=== PATIENT | female | born 1950 | race Caucasian/White ===

== ENCOUNTER → 2019-06-07 | Outpatient (CLI) | payer MEDICARE ==
--- NOTE | 2019-06-07 08:59 | US ---
EXAMINATION TYPE: US abdomen comp/pelvis limited DATE OF EXAM: 06/07/2019 COMPARISON: NONE CLINICAL HISTORY: R31.9 hematuria. Intermittent left flank pain x couple months, hematuria, history o f cholecystectomy EXAM MEASUREMENTS: Liver Length: 16.5 cm Gallbladder Wall: surgically absent CBD: 0.7 cm Spleen: 9.9 cm Right Kidney: 10.9 x 6.1 x 5.8 cm Left Kidney: 11.1 x 5.8 x 5.0 cm Pancreas: visualized portions wnl, limited by overlying midline bowel gas Liver: mildly heterogeneous, which limits evaluation for hepatic masses although multiple cysts are seen with the largest measuring 2.7 x 3.0 x 2.7cm Gallbladder: surgically absent CBD: visualized portions wnl, limited by overlying bowel gas Spleen: visualized portions wnl, limited by overlying bowel gas Right Kidney: cortical thinning, 0.6cm echogenic focus mid pole, 4.5cm exophytic cyst inferior pole Left Kidney: mild hydronephrosis Upper IVC: wnl Abd Aorta: wnl Bladder: not fully distended, appears wnl as seen Bilateral Jets Seen no IMPRESSION: 1. Mild left-sided hydronephrosis. CT could assess for distal obstructing calculus or mass. 2. Probable punctate nonobstructing right renal calculus versus small angiomyolipoma as no distinct s hadowing is seen. Incidental note is made of right cortical renal thinning. 3. Benign-appearing exophytic right renal cysts and multiple hepatic cysts. 4. Sonographic findings most suggestive of hepatic steatosis. Correlate with liver function tests.
== END | disposition home or self-care (01) ==
LOC: RADUSWWP 07:55
PROVIDERS: ATTEND Family Medicine
DX: N13.30 Unspecified hydronephrosis (principal); N28.1 Cyst of kidney, acquired; K76.89 Other specified diseases of liver
CPT/HCPCS: 76700; 76857

== ENCOUNTER → 2019-06-25 | Outpatient (CLI) | payer MEDICARE ==
--- NOTE | 2019-06-25 13:04 | CT ---
EXAMINATION TYPE: CT abdomen pelvis wo con DATE OF EXAM: 06/25/2019 COMPARISON: Ultrasound 06/07/2019 HISTORY: Right flank pain CT DLP: 899 mGycm Automated exposure control for dose reduction was used. TECHNIQUE: Helical acquisition of images was performed from the lung bases through the pelvis. FINDINGS: LUNG BASES: No significant abnormality is appreciated. LIVER/GB: Multiple hepatic cysts are seen with the largest measuring approximately 3 cm. Gallbladder surgically absent. PANCREAS: No significant abnormality is seen. SPLEEN: No significant abnormality is seen. ADRENALS: No significant abnormality is seen. KIDNEYS: Right kidney: There are multiple simple appearing cysts including multiple parapelvic renal cysts. No hydronephrosis. There are approximately 8 right renal calculi all measuring less than 5 mm. Cortical loss noted. Left kidney: There are approximately 8 calcifications measuring 5 mm or less. Cortical loss noted. URINARY BLADDER: No significant abnormality is seen. ADENOPATHY: None visualized. OSSEOUS STRUCTURES: Degenerative disc disease noted with severe changes of BOWEL: Diverticulosis of the colon. Small hiatal hernia noted. OTHER: Aorta of normal caliber. Calcifications in pelvis. Bilateral fat-containing inguinal hernias n oted. Fat-containing periumbilical hernia. IMPRESSION: 1. Bilateral nonobstructing nephrolithiasis with evidence of cortical loss suggestive of chronic medi ike renal disease. No hydronephrosis.
== END | disposition home or self-care (01) ==
LOC: RADCTMAIN 12:29
PROVIDERS: ATTEND Urology
DX: N20.0 Calculus of kidney (principal); N28.89 Other specified disorders of kidney and ureter
CPT/HCPCS: 74176

== ENCOUNTER → 2020-03-18 | Outpatient (CLI) | payer MEDICARE, OTHER ==
--- NOTE | 2020-03-19 10:08 | MM ---
Reason for exam: screening (asymptomatic). Last mammogram was performed 4 years and 9 months ago. History: Patient is postmenopausal. Physical Findings: A clinical breast exam by your physician is recommended on an annual basis and results should be correlated with mammographic findings. MG 3D Screening Mammo W/Cad Bilateral CC and MLO view(s) were taken. Prior study comparison: June 16, 2015, mammogram. The breast tissue is heterogeneously dense. This may lower the sensitivity of mammography. There is no discrete abnormality. ASSESSMENT: Negative, BI-RAD 1 RECOMMENDATION: Routine screening mammogram of both breasts in 1 year.
== END | disposition home or self-care (01) ==
LOC: RADMAMWWP 08:54
PROVIDERS: ATTEND Family Medicine
DX: Z12.31 Encounter for screening mammogram for malignant neoplasm of breast (principal)
CPT/HCPCS: 77063; 77067

== ENCOUNTER → 2021-01-14 | Outpatient (CLI) | payer MEDICARE ==
[~2021-01-14] MED LIST: DOBUTamine DRIP for NUC MED 500 MG in DEXTROSE/WATER 1 250ML.BAG IV PRN
--- NOTE | 2021-01-14 11:15 | P.STRESS ---
- Stress Test Note Stress Test Results/Findings: Exam Performed: dobutamine stress echo with con Exam Date: 01/14/21 Reason for Exam: Dyspnea Height: 5 ft 7 in Weight: 97.7 kg Protocol: Dobutamine stress echo Stage: IV Duration of Exercise: 13:06 Resting Heart Rate: 73 Resting Blood Pressure: 156/87 Maximum Achieved Heart Rate: 130 Maximum Achieved Blood Pressure: 188/77 85% PMHR: 127 100% PMHR: 149 METS: Technologist Comment: Stress Test Results/Findings: This is a 70-year-old female with history of hypertension, hypercholesterolemia, family history of ischemic heart disease being evaluated for symptoms of shortness of breath. Stress data: Baseline EKG showed sinus rhythm with normal [place] interval and QRS duration. Blood pressure at rest is 156/87 and pulse rate of 73. A standard dose of dobutamine was initiated at 10 mics and was titrated to 40 mics achieving a maximum heart rate of 1:30 with a blood pressure 188/77. EKGs taken during and after dobutamine infusion did not show any changes of ischemia. Patient did not have any symptoms. Echo data Baseline echo images showed normal wall motion and thickening. Exerci se at echo images showed augmentation of wall motion and thickening in all the segments. The study is done with [employer]. Final impression: #1. Negative dobutamine stress test #2. Negative dobutamine stress echo.
--- NOTE | 2021-01-15 10:10 | ECHOS ---
Stress Test Results/Findings: Exam Performed: dobutamine stress echo with con Exam Date: 01/14/21 Reason for Exam: Dyspnea Height: 5 ft 7 in Weight: 97.7 kg Protocol: Dobutamine stress echo Stage: IV Duration of Exercise: 13:06 Resting Heart Rate: 73 Resting Blood Pressure: 156/87 Maximum Achieved Heart Rate: 130 Maximum Achieved Blood Pressure: 188/77 85% PMHR: 127 100% PMHR: 149 METS: Technologist Comment: Stress Test Results/Findings: This is a 70-year-old female with history of hypertension, hypercholesterolemia, family history of ischemic heart disease being evaluated for symptoms of shortness of breath. Stress data: Baseline EKG showed sinus rhythm with normal [place] interval and QRS duration. Blood pressure at rest is 156/87 and pulse rate of 73. A standard dose of dobutamine was initiated at 10 mics and was titrated to 40 mics achieving a maximum heart rate of 1:30 with a blood pressure 188/77. EKGs taken during and after dobutamine infusion did not show any changes of ischemia. Patient did not have any symptoms. Echo data Baseline echo images showed normal wall motion and thickening. Exercise at echo images showed augmentation of wall motion and thickening in all the segments. The study is done with [employer]. Final impression: #1. Negative dobutamine stress test #2. Negative dobutamine stress echo. CLEMENTINA
== END | disposition home or self-care (01) ==
LOC: RADNMMAIN 09:11
PROVIDERS: ATTEND Family Medicine
DX: R06.00 Dyspnea, unspecified (principal)
CPT/HCPCS: C8930; Q9950; 93351

== ENCOUNTER → 2021-07-01 | Outpatient (CLI) | payer MEDICARE ==
--- NOTE | 2021-07-02 12:52 | MM ---
Reason for exam: screening (asymptomatic). Last mammogram was performed 1 year and 3 months ago. History: Patient is postmenopausal. Took hormonal contraceptives for 2 years. Physical Findings: A clinical breast exam by your physician is recommended on an annual basis and results should be correlated with mammographic findings. MG 3D Screening Mammo W/Cad Bilateral CC and MLO view(s) were taken. Prior study comparison: March 18, 2020, bilateral MG 3d screening mammo w/cad. June 16, 2015, mammogram. The breast tissue is heterogeneously dense. This may lower the sensitivity of mammography. There is no discrete abnormality. No significant changes when compared with prior studies. ASSESSMENT: Negative, BI-RAD 1 RECOMMENDATION: Routine screening mammogram of both breasts in 1 year.
== END | disposition home or self-care (01) ==
LOC: RADUSWWP 13:06
PROVIDERS: ATTEND Family Medicine
DX: Z12.31 Encounter for screening mammogram for malignant neoplasm of breast (principal); Z78.0 Asymptomatic menopausal state; Z79.3 Long term (current) use of hormonal contraceptives
CPT/HCPCS: 77063; 77067

== ENCOUNTER → 2021-08-04 | Outpatient (CLI) | payer MEDICARE ==
--- NOTE | 2021-08-11 12:02 | P.ARTDOP ---
Arterial Doppler LOWER EXTREMITY ARTERIAL DOPPLER: DATE OF SERVICE: 08/04/2021 Reason for study: Suspected lower extremity occlusive disease. Doppler waveforms: Multiphasic bilaterally throughout. Toe waveforms blunted bilaterally. Pulse volume recording: []. Pressure gradients: Mild gradient below the knee. Ankle-brachial indices: 0.93 on the right and 0.99 on the left. Toe brachial indices: 0.41 on the right, 0.37 on the left Impression: Mild distal decrease in pressures. Vasospastic phenomenon is a potential. Distal disease less likely. Clinical correlation recommended.
== END | disposition home or self-care (01) ==
LOC: RADUSWWP 13:11
PROVIDERS: ATTEND Family Medicine
DX: I73.9 Peripheral vascular disease, unspecified (principal)
CPT/HCPCS: 93923

== ENCOUNTER 2021-09-25 11:02 | Observation (INO) | payer MEDICARE ==
--- NOTE | 2021-09-25 11:18 | ED ---
Chest Pain HPI - General Stated Complaint: Chest Pain Time Seen by Provider: 09/25/21 11:03 Source: patient - History of Present Illness Initial Comments: This is a well-appearing 71-year-old female, alert and oriented 4, presents to the emergency room with complaints of 3 days of intermittent chest pain that lasts about 2-3 minutes and occurs at rest and feels like a "fullness". She states that she has 2-3 episodes a day. States that the pain sometimes radiates into her back and her left side of her neck. She is also been complaining of fatigue for the past couple of months and shortness of breath and anxiety when she gets in a vehicle. She states that the ride in the ambulance to the hospital was anxiety producing for her as well. Patient states that she has spoken to her doctor about her anxiety and fatigue and has been having tests. Patient states that she thinks that her anxiety meds need to be increased. She denies any chest pain or shortness of breath at this time. She denies any nausea vomiting or diarrhea. Patient has a history of anxiety, hypertension, peripheral vascular disease, mitral valve prolapse, hypothyroidism, and uses a CPAP machine at night. MD Complaint: chest pain -: days(s) (3) Onset: during rest Pain Location: substernal Pain Radiation: back, neck Quality: other (fullness) Consistency: now resolved Improves With: nothing Worsens With: nothing Anginal Symptoms: dyspnea Other Symptoms: other (fatigue) Treatments Prior to Arrival: none - Related Data Home Medications Medication Instructions Recorded Confirmed Ezetimibe [Zetia] 10 mg PO DAILY 01/12/19 09/25/21 Nebivolol HCl [Bystolic] 10 mg PO DAILY 01/12/19 09/25/21 Aspirin EC [Ecotrin Low Dose] 81 mg PO DAILY 09/25/21 09/25/21 Cholecalciferol [Vitamin D3 (125 125 mcg PO DAILY 09/25/21 09/25/21 Mcg = 5000 Iu)] Citalopram Hydrobromide [CeleXA] 20 mg PO DAILY 09/25/21 09/25/21 Levothyroxine Sodium 112 mcg PO DAILY 09/25/21 09/25/21 Mirtazapine [Remeron] 30 mg PO HS 09/25/21 09/25/21 Pramipexole [Mirapex] 1 mg PO HS 09/25/21 09/25/21 Super B Complex 1 tab PO DAILY 09/25/21 09/25/21 Allergies Allergy/AdvReac Type Severity Reaction Status Date / Time No Known Allergies Allergy Verified 09/25/21 15:28 Review of Systems ROS Statement: Those systems with pertinent positive or pertinent negative responses have been documented in the HPI. ROS Other: All systems not noted in ROS Statement are negative. EKG Findings - EKG Results: EKG: sinus rhythm (Ventricular rate 64, [place] interval of 0.188, QRS 0.86, QTC 0.435) Past Medical History Past Medical History: Hypertension, Mitral Valve Prolapse (MVP), Pulmonary Embolus (PE), Thyroid Disorder History of Any Multi-Drug Resistant Organisms: None Reported Past Surgical History: Cholecystectomy, Heart Catheterization, Hysterectomy, Orthopedic Surgery Additional Past Surgical History / Comment(s): knee replacement 2017 Past Psychological History: Depression Past Alcohol Use History: Occasional Past Drug Use History: None Reported General Exam General appearance: alert, in no apparent distress Head exam: Present: atraumatic, normocephalic, normal inspection Eye exam: Present: normal appearance, EOMI ENT exam: Present: normal exam, normal oropharynx, mucous membranes moist Neck exam: Present: normal inspection, full ROM. Absent: tenderness, meningismus, lymphadenopathy, thyromegaly Respiratory exam: Present: normal lung sounds bilaterally. Absent: respiratory distress, wheezes, rales, rhonchi, stridor, chest wall tenderness, accessory muscle use Cardiovascular Exam: Present: regular rate, normal rhythm. Absent: JVD GI/Abdominal exam: Present: soft, normal bowel sounds. Absent: distended, tenderness, guarding, rebound, rigid Extremities exam: Present: normal capillary refill. Absent: pedal edema, calf tenderness Back exam: Present: normal inspection. Absent: tenderness, CVA tenderness (R), CVA tenderness (L), rash noted Neurological exam: Present: alert, oriented X3 Psychiatric exam: Present: normal affect, normal mood Skin exam: Present: warm, dry, intact, normal color. Absent: rash, cyanosis, diaphoretic, pallor Course Vital Signs 09/25/21 09/25/21 11:17 15:05 Temperature 97.7 F 97.8 F Pulse Rate 70 59 L Respiratory 16 18 Rate Blood Pressure 138/90 O2 Sat by Pulse 98 96 Oximetry Chest Pain MDM - Differential Diagnosis GERD, Panic Disorder/Anxiety - MDM 71-year-old female patient presents to the emergency room with complaints of chest pain and shortness of breath over the past 2-3 days. She states the episodes last 2-3 minutes and she has had up to 3 a day. He states that they occur at rest. They're not accompanied with nausea or vomiting. She did have a recent stress test in December of this year and was negative. Chest x-ray shows no acute cardiopulmonary disease process. Bibasilar atelectasis with no pleural effusion or focal consolidation. CBC is unremarkable. Troponin is negative at 0.012 EKG shows normal sinus rhythm. She states that she did have an episode of chest pain in the emergency room which has resolved on its own. She describes the pain as a fullness in her chest. Patient does have a family history of ischemic heart disease. She has a history of hypertension, mitral valve prolapse, peripheral vascular disease. Due to her risk factors, she will be placed in observation with cardiology consult. Case was discussed with Dr. Wilson. - ELBERT Score Age > 65: (1) Yes 3 or more CAD Risk Factors: (1) Yes Known CAD with more than 50% Stenosis: (0) No Aspirin use within the Past 7 Days: (0) No Elevated Cardiac Markers: (0) No ST Deviation Greater than 0.5mm: (0) No Disposition Clinical Impression: Chest pain Disposition: ADMITTED IP TO THIS HOSP Referrals: Carlos Cantu MD [Primary Care Provider] - 1-2 days Decision Date: 09/25/21 Decision Time: 15:00
[2021-09-25 12:33] LABS: Basophils % (A) 1 %; Eosinophils # (A) 0.1 k/uL (0-0.7); Eosinophils % (A) 3 %; HCT 45.6 % (34.0-46.0); Lymphocytes # (A) 1.1 k/uL (1.0-4.8); Lymphocytes % (A) 23 %; MCH 31.2 pg (25.0-35.0); MCV 94.6 fL (80.0-100.0); Mean Platelet Volume 8.2; Monocytes # (A) 0.3 k/uL (0-1.0); Monocytes % (A) 7 %; Neutrophils % (A) 64 %; Platelet Count 242 k/uL (150-450); RBC 4.81 m/uL (3.80-5.40); RDW 13.9 % (11.5-15.5); WBC 4.7 k/uL (3.8-10.6)
[2021-09-25 12:55] LABS: ALT 17 U/L (4-34); AST 25 U/L (14-36); African American GFR (CKD) >90 (>60 ml/min/1.73 sqM); Albumin 4.1 g/dL (3.5-5.0); Alkaline Phosphatase 62 U/L (38-126); Anion Gap 8 mmol/L; Blood Urea Nitrogen 25 mg/dL (7-17); Calcium 9.9 mg/dL (8.4-10.2); Carbon Dioxide 26 mmol/L (22-30); Chloride 105 mmol/L (98-107); Glucose 127 mg/dL (74-99); Non-African American GFR(CKD) 80 (>60 ml/min/1.73 sqM); Sodium 139 mmol/L (137-145); Total Bilirubin 0.6 mg/dL (0.2-1.3)
[2021-09-25 12:58] LABS: INR 0.9 (<1.2); Partial Thromboplastin Time 22.9 sec (22.0-30.0); Prothrombin Time 10.2 sec (9.0-12.0)
[2021-09-25 13:11] LABS: Potassium 4.3 mmol/L (3.5-5.1)
[2021-09-25] MEDS ORDERED: FAMOTIDINE 20 MG/2 ML VIAL IV STA (13:11)
[2021-09-25 13:25] LABS: Appearance,Urine Clear (Clear); Bilirubin,Urine Negative (Negative); Blood,Urine Negative (Negative); Color,Urine Colorless; Glucose,Urine (UA) Negative (Negative); Ketones,Urine Negative (Negative); Leukocyte Esterase,Urine Negative (Negative); Nitrite,Urine Negative (Negative); Protein,Urine Negative (Negative); Specific Gravity,Urine 1.005 (1.001-1.035); Urobilinogen,Urine <2.0 mg/dL (<2.0)
--- NOTE | 2021-09-25 14:32 | XR ---
INDICATION: Patient age:Female; 71 years old; Reason for study: Chest Pain; PHH. COMPARISON: Multiple radiographs, with the most recent on 10/01/2011. TECHNIQUE: Frontal and lateral views of the chest. FINDINGS: Lungs/Pleura: Bibasilar atelectasis. No evidence for pneumothorax pleural effusion or focal consolida tion. Pulmonary vascularity: Unremarkable. Heart/mediastinum: Cardiomediastinal silhouette is unremarkable. Musculoskeletal: No acute osseous pathology. Other findings: Surgical clips in the right lower neck. IMPRESSION: No acute cardiopulmonary disease/process.
[2021-09-25] MEDS ORDERED: NALOXONE 0.4 MG/ML 1 ML VIAL IV PRN (14:53)
[2021-09-25] MEDS ORDERED: ACETAMINOPHEN TAB 325 MG TAB PO PRN (14:53)
--- NOTE | 2021-09-25 15:23 | P.HPIM ---
History of Present Illness H&P Date: 09/25/21 Chief Complaint: Chest pain Patient is a 71-year-old female with a past medical history of depression, anxiety, hypertension, hypothyroidism, hyperlipidemia who presents to the ED with complaints of fatigue and also chest pain that has been ongoing for the past 2 days. Patient states that her chest pain is dull. She states that she sometimes has chest pain in her neck, left side, Center back. She states the pain radiates to the middle of her chest. She denies chest pain associated with exertion. She states that she gets at least 2 episodes of chest pain per day. She believes that the chest pain gets better when she eats food. Patient says that when she came to the ED she was having chest pain. ED nurse practitioner thought that the chest pain was due to acid reflux so she was given Pepcid which resolved her chest pain. Patient believes that her chest pain is due to anxiety and her anxiety meds need to be adjusted. Patient had a stress test done in December 2020 which was negative. Patient stated that she also had a heart catheterization done many years ago that was negative. Because patient has a family history of heart attack in her mother at the age of 82 ED wanted to admit the patient for chest pain evaluation. Patient currently denies any chest pain. Review of Systems 10 ROS reviewed and are negative except as noted in HPI Past Medical History Past Medical History: Hypertension, Mitral Valve Prolapse (MVP), Pulmonary Embolus (PE), Thyroid Disorder History of Any Multi-Drug Resistant Organisms: None Reported Past Surgical History: Cholecystectomy, Heart Catheterization, Hysterectomy, Orthopedic Surgery Additional Past Surgical History / Comment(s): knee replacement 2016 Past Psychological History: Depression Past Alcohol Use History: Occasional Past Drug Use History: None Reported Medications and Allergies Home Medications Medication Instructions Recorded Confirmed Type Ezetimibe [Zetia] 10 mg PO DAILY 01/12/19 01/12/19 History Fenofibrate [Lofibra] 67 mg PO DAILY 01/12/19 01/12/19 History Levothyroxine Sodium [Synthroid] 25 mcg PO DAILY 01/12/19 01/12/19 History Nebivolol HCl [Bystolic] 10 mg PO DAILY 01/12/19 01/12/19 History Allergies Allergy/AdvReac Type Severity Reaction Status Date / Time No Known Allergies Allergy Verified 09/25/21 11:20 Physical Exam Osteopathic Statement: *. No significant issues noted on an osteopathic structural exam other than those noted in the History and Physical/Consult. Vitals: Vital Signs Temp Pulse Resp BP Pulse Ox 09/25/21 15:05 97.8 F 59 L 18 138/90 96 09/25/21 11:17 97.7 F 70 16 98 Intake and Output 09/25/21 09/25/21 09/25/21 06:59 14:59 22:59 Other: Weight 102.058 kg General: [Alert and oriented, well nourished, no acute distress]. Eye: [PERRL, EOMI, normal conjunctiva]. HENT: [Normocephalic, clear tympanic membranes, normal hearing, moist oral mucosa, no scleral icterus, no sinus tenderness]. Neck: [Supple, non-tender, no carotid bruits, no JVD, no lymphadenopathy]. Lungs: [Clear to auscultation and percussion, non-labored respiration]. Heart: [Normal rate, regular rhythm, no murmur, gallop or edema]. Abdomen: [Soft, non-tender, non-distended, normal bowel sounds, no masses]. Musculoskeletal: [Normal range of motion and strength, no tenderness or swelling]. Skin: [Skin is warm, dry and pink, no rashes or lesions]. Neurologic: [Awake, alert, and oriented X3, CN II-XII intact]. Psychiatric: [Cooperative, appropriate mood and affect]. Results CBC & Chem 7: 09/25/21 11:57 09/25/21 11:57 Labs: Abnormal Lab Results - Last 24 Hours (Table) 09/25/21 Range/Units 11:57 BUN 25 H (7-17) mg/dL Glucose 127 H (74-99) mg/dL Assessment and Plan Assessment: Atypical chest pain likely due to anxiety versus acid reflux -Rule out cardiac etiology -Trend troponin 3 -Check echocardiogram -Consult cardiology -Resume patient's home dose of aspirin and cholesterol medication Fatigue -Labs are negative for anemia and TSH within normal limits -This is being worked up as outpatient Anxiety and depression -Resume home meds and follow-up with PCP Hyperlipidemia -Resume home meds Hypothyroidism -Resume home meds CODE STATUS:full code DPOA: Daughter DVT prophylaxis: Heparin subcu Discussed with: Patient, ER, rn Anticipated length of stay < than [address]: home A total of 75 minutes was spent on the care of this complex patient more than 50% of the time was spent in counseling and care coordination.
[2021-09-25] MEDS: FAMOTIDINE 20 MG TAB PO SCH (22:13)
[2021-09-25] MEDS: PRAMIPEXOLE 1 MG TAB PO SCH (22:15)
[2021-09-25] MEDS: MIRTAZAPINE 15 MG TAB PO SCH (22:48)
[2021-09-26] MEDS: LEVOTHYROXINE 112 MCG TAB PO SCH (05:40)
[2021-09-26] MEDS ORDERED: NON FORMULARY DRUG (Super B Complex 1 TAB) PO SCH (09:00)
[2021-09-26] MEDS: NEBIVOLOL 5 MG TAB PO SCH (09:17)
[2021-09-26] MEDS: CHOLECALCIFEROL 125 MCG (5000 IU) TABLET PO SCH (09:17)
[2021-09-26] MEDS: EZETIMIBE 10 MG TAB PO SCH (09:17)
[2021-09-26] MEDS: CITALOPRAM HYDROBROMIDE 20 MG TAB PO SCH (09:18)
[2021-09-26] MEDS: FAMOTIDINE 20 MG TAB PO SCH ×2 (09:18→20:49)
[2021-09-26] MEDS: ASPIRIN 81 MG PO SCH (09:18)
--- NOTE | 2021-09-26 11:01 | P.PN ---
Subjective Progress Note Date: 09/26/21 Patient says that she still feels fatigued. Patient states that her chest pain is likely due to acid reflux because it improves with Pepcid. Patient states that she would like to have for cardiology workup done. She would like to stay in the hospital until an echocardiogram is done. I did tell patient that echocardiogram will likely be done on Monday. Patient is amenable to staying Objective - Vital Signs Vital signs: Vital Signs Temp 97.7 F 09/26/21 07:00 Pulse 65 09/26/21 07:00 Resp 18 09/26/21 07:00 BP 159/98 09/26/21 07:00 Pulse Ox 95 09/26/21 07:00 Intake & Output 09/25/21 09/26/21 09/26/21 18:59 06:59 18:59 Intake Total 118 Balance 118 Weight 102.058 kg 102.058 kg Intake: Oral 118 Other: # Voids 2 - Exam General examination - Alert and Oriented 3 in NAD Heart - + S1S2 no murmurs Lungs - Clear to auscultation Abdomen soft NT ND +ve BS Extremities - No edema SLOT FLOOR PERSON - Moving all 4 extremities spontaneously Psych - Calm and cooperative - Labs CBC & Chem 7: 09/25/21 11:57 09/25/21 11:57 Labs: Abnormal Lab Results - Last 24 Hours (Table) 09/25/21 Range/Units 11:57 BUN 25 H (7-17) mg/dL Glucose 127 H (74-99) mg/dL Assessment and Plan Assessment: Atypical chest pain likely due to anxiety versus acid reflux -Likely acid reflux since symptoms improved with Pepcid -Rule out cardiac etiology -Troponin negative 3 -Check echocardiogram -Cardiology consult pending -Resume patient's home dose of aspirin and cholesterol medication Fatigue -Labs are negative for anemia and TSH within normal limits -This is being worked up as outpatient Anxiety and depression -Resume home meds and follow-up with PCP Hyperlipidemia -Resume home meds Hypothyroidism -Resume home meds CODE STATUS:full code DPOA: Daughter DVT prophylaxis: Heparin subcu Anticipated length of stay < than [address]: Patient can be discharged home if cleared by cardiology
--- NOTE | 2021-09-26 13:40 | P.CRDCN ---
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 Has a history of depression, anxiety, hypertension, hypothyroidism, hyperlipidemia and apparent mitral valve prolapse. She apparently underwent cardiac catheterization about 10 years ago which was unremarkable. She had a dobutamine stress echo in December of this year which was normal. Presented to the emergency department with complaints of left sided chest discomfort radiating to her back lasting a couple of minutes not exertional. It has been occurring a couple times a day improves after eating. She did receive some Pepcid in the emergency department with resolution of her symptoms. She is also been experiencing some shortness of breath but feels this is related to her anxiety. It is not exertional and typically related to when she is going somewhere and feeling anxious about it. Laboratory values on admission showed normal CBC, potassium 4.3, BUN 25, creatinine 0.75, magnesium 2.0, troponins negative 3 and a normal TSH. EKG on admission showed sinus mechanism with no evidence of acute ischemia. His x-ray showed no acute cardiopulmonary disease or process. Vital signs and stable blood pressure is elevated this morning. Overall the patient is feeling okay this morning. She denies any complaints of chest discomfort at this time. Denies any palpitations, dizziness or lightheadedness, shortness of breath, edema or PND. Past Medical History Past Medical History: Hypertension, Mitral Valve Prolapse (MVP), Pulmonary Embolus (PE), Thyroid Disorder History of Any Multi-Drug Resistant Organisms: None Reported Past Surgical History: Cholecystectomy, Heart Catheterization, Hysterectomy, Orthopedic Surgery Additional Past Surgical History / Comment(s): knee replacement 2017, partial thyroidectomy Past Psychological History: Depression Smoking Status: Never smoker Past Alcohol Use History: Occasional Past Drug Use History: None Reported Medications and Allergies Home Medications Medication Instructions Recorded Confirmed Type Ezetimibe [Zetia] 10 mg PO DAILY 01/12/19 09/25/21 History Nebivolol HCl [Bystolic] 10 mg PO DAILY 01/12/19 09/25/21 History Aspirin EC [Ecotrin Low Dose] 81 mg PO DAILY 09/25/21 09/25/21 History Cholecalciferol [Vitamin D3 (125 125 mcg PO DAILY 09/25/21 09/25/21 History Mcg = 5000 Iu)] Citalopram Hydrobromide [CeleXA] 20 mg PO DAILY 09/25/21 09/25/21 History Levothyroxine Sodium 112 mcg PO DAILY 09/25/21 09/25/21 History Mirtazapine [Remeron] 30 mg PO HS 09/25/21 09/25/21 History Pramipexole [Mirapex] 1 mg PO HS 09/25/21 09/25/21 History Super B Complex 1 tab PO DAILY 09/25/21 09/25/21 History Allergies Allergy/AdvReac Type Severity Reaction Status Date / Time No Known Allergies Allergy Verified 09/25/21 15:28 Physical Exam Vitals: Vital Signs Temp Pulse Pulse Resp BP BP Pulse Ox 09/26/21 07:00 97.7 F 65 18 159/98 95 09/26/21 02:10 60 09/26/21 01:33 97.9 F 60 18 112/75 91 L 09/25/21 21:24 54 L 09/25/21 20:45 98.7 F 54 L 17 132/82 95 09/25/21 20:00 98.4 F 61 18 140/94 96 09/25/21 19:00 60 16 125/75 94 L 09/25/21 15:05 97.8 F 59 L 18 138/90 96 09/25/21 11:17 97.7 F 70 16 98 Intake and Output 09/25/21 09/26/21 09/26/21 22:59 06:59 14:59 Intake Total 118 Balance 118 Intake: Oral 118 Other: # Voids 2 Weight 102.058 kg PHYSICAL EXAMINATION: This is a 71-year-old female in no apparent distress at the time of my examination. VITAL SIGNS: Blood pressure 159/98 heart rate 65 respirations 18, temp 97.7F Patient Oxygen saturation 95% Room air . HEENT: Head is atraumatic, normocephalic. Pupils are equal, round. Sclerae anicteric. Conjunctivae are clear. Mucous membranes of the mouth are moist. Neck is supple. [There is no elevated jugular venous pressure]. No carotid bruit is heard. CHEST EXAMINATION:[ Clear to auscultation bilaterally. No wheezes rales or rhonchi. Respirations even and nonlabored. Mild tenderness to palpation involving the left chest HEART EXAMINATION: [ Heart regular, positive S1 and S2. No S3. No S4. No clicks, rubs or murmurs. ] ABDOMEN: Soft, nontender. Bowel sounds are heard. No organomegaly noted. EXTREMITIES: 2+ peripheral pulses with no evidence of peripheral edema and no calf tenderness noted]. NEUROLOGIC EXAMINATION: Patient is awake, alert and oriented x3. Results 09/25/21 11:57 09/25/21 11:57 Cardiac Enzymes 09/25/21 09/25/21 09/25/21 Range/Units 11:57 11:57 15:20 AST 25 (14-36) U/L Troponin I <0.012 <0.012 (0.000-0.034) ng/mL 09/25/21 Range/Units 18:14 AST (14-36) U/L Troponin I <0.012 (0.000-0.034) ng/mL Coagulation 09/25/21 Range/Units 11:57 PT 10.2 (9.0-12.0) sec APTT 22.9 (22.0-30.0) sec CBC 09/25/21 Range/Units 11:57 WBC 4.7 (3.8-10.6) k/uL RBC 4.81 (3.80-5.40) m/uL Hgb 15.0 (11.4-16.0) gm/dL Hct 45.6 (34.0-46.0) % Plt Count 242 (150-450) k/uL Comprehensive Metabolic Panel 09/25/21 Range/Units 11:57 Sodium 139 (137-145) mmol/L Potassium 4.3 (3.5-5.1) mmol/L Chloride 105 (98-107) mmol/L Carbon Dioxide 26 (22-30) mmol/L BUN 25 H (7-17) mg/dL Creatinine 0.75 (0.52-1.04) mg/dL Glucose 127 H (74-99) mg/dL Calcium 9.9 (8.4-10.2) mg/dL AST 25 (14-36) U/L ALT 17 (4-34) U/L Alkaline Phosphatase 62 (38-126) U/L Total Protein 7.0 (6.3-8.2) g/dL Albumin 4.1 (3.5-5.0) g/dL Current Medications Generic Name Dose Route Start Last Admin Trade Name Freq PRN Reason Stop Dose Admin Acetaminophen 650 mg 09/25/21 14:53 Acetaminophen Tab 325 Mg Tab PO Q6HR PRN Mild Pain or Fever > 100.5 Aspirin 81 mg 09/26/21 09:00 09/26/21 09:18 Aspirin 81 Mg PO 81 mg DAILY MINDY Administration Cholecalciferol 125 mcg 09/26/21 09:00 09/26/21 09:17 Cholecalciferol 125 Mcg (5000 Iu) Tablet PO 125 mcg DAILY MINDY Administration Citalopram Hydrobromide 20 mg 09/26/21 09:00 09/26/21 09:18 Citalopram Hydrobromide 20 Mg Tab PO 20 mg DAILY MINDY Administration Ezetimibe 10 mg 09/26/21 09:00 09/26/21 09:17 Ezetimibe 10 Mg Tab PO 10 mg DAILY MINDY Administration Famotidine 20 mg 09/25/21 21:00 09/26/21 09:18 Famotidine 20 Mg Tab PO 20 mg BID MINDY Administration Levothyroxine Sodium 112 mcg 09/26/21 06:30 09/26/21 05:40 Levothyroxine 112 Mcg Tab PO 112 mcg DAILY@0630 MINDY Administration Mirtazapine 30 mg 09/25/21 21:00 09/25/21 22:48 Mirtazapine 15 Mg Tab PO 30 mg HS MINDY Administration Naloxone HCl 0.2 mg 09/25/21 14:53 Naloxone 0.4 Mg/Ml 1 Ml Vial IV Q2M PRN Opioid Reversal Nebivolol 10 mg 09/26/21 09:00 09/26/21 09:17 Nebivolol 5 Mg Tab PO 10 mg DAILY MINDY Administration Pramipexole Dihydrochloride 1 mg 09/25/21 21:00 09/25/21 22:15 Pramipexole 1 Mg Tab PO 1 mg HS MINDY Administration Intake and Output 09/25/21 09/26/21 09/26/21 22:59 06:59 14:59 Intake Total 118 Balance 118 Intake: Oral 118 Other: # Voids 2 Weight 102.058 kg 09/25/21 11:57 09/25/21 11:57 Assessment and Plan Assessment: #1 symptoms of chest pain, atypical, acute coronary event has been ruled out, troponins were negative 3 with no acute changes on EKG #2 hypertension #3 hyperlipidemia #4 reported history of mitral valve prolapse #5 hypothyroidism #6 depression and anxiety Plan: From cardiology's perspective and acute coronary event has been ruled out. We will obtain a 2-D echo with Doppler study to assess cardiac structure and function. We will monitor the patient for further complaints of chest discomfort. Depending on patient's symptoms and diagnostic findings further recommendations will be made. The above dictated assessment and findings were discussed with signing physician. The impression and plan of care have been directed as dictated. Raissa Magdaleno, Nurse Practitioner, acting as scribe for signing physician.
[2021-09-26] MEDS: MIRTAZAPINE 15 MG TAB PO SCH (20:49)
[2021-09-26] MEDS: PRAMIPEXOLE 1 MG TAB PO SCH (20:49)
[2021-09-27] MEDS: LEVOTHYROXINE 112 MCG TAB PO SCH (06:32)
[2021-09-27 07:54] VITALS: RESP 18
[2021-09-27] MEDS: CITALOPRAM HYDROBROMIDE 20 MG TAB PO SCH (09:04)
[2021-09-27] MEDS: EZETIMIBE 10 MG TAB PO SCH (09:04)
[2021-09-27] MEDS: CHOLECALCIFEROL 125 MCG (5000 IU) TABLET PO SCH (09:05)
[2021-09-27] MEDS: ASPIRIN 81 MG PO SCH (09:05)
[2021-09-27] MEDS: FAMOTIDINE 20 MG TAB PO SCH (09:05)
[2021-09-27] MEDS: NEBIVOLOL 5 MG TAB PO SCH (09:05)
[2021-09-27] MEDS ORDERED: ONDANSETRON 4 MG/2 ML VIAL IVP PRN (09:33)
[2021-09-27] MEDS ORDERED: FLUTICASONE 50MCG/SPRAY NASAL 16GM EA NOSTRIL SCH (09:45)
--- NOTE | 2021-09-27 10:44 | P.PN ---
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 Has a history of depression, anxiety, hypertension, hypoth yroidism, hyperlipidemia and apparent mitral valve prolapse. She apparently underwent cardiac catheterization about 10 years ago which was unremarkable. She had a dobutamine stress echo in December 2020 which was normal. Presented to the emergency department 09/25/21 with complaints of left sided chest discomfort radiating to her back lasting a couple of minutes not exertional. It has been occurring a couple times a day improves after eating. She did receive some Pepcid in the emergency department with resolution of her symptoms. She is also been experiencing some shortness of breath but feels this is related to her anxiety. It is not exertional and typically related to when she is going somewhere and feeling anxious about it. EKG on admission showed sinus mechanism with no evidence of acute ischemia. Chest x-ray showed no acute cardiopulmonary disease or process. Troponin negative x 3. 09/27/2021; Patient seen and examined at bedside, no acute distress. She denies any chest p ain, shortness of breath, leg numbness, dizziness, orthopnea or PND. Blood pressure 140/78, heart rate 51, afebrile, saturations greater than 92% on room air. Telemetry reviewed patient in sinus mechanism, heart rate in the 50s. She is currently maintained on aspirin 81 mg daily, study at 10 mg daily, bystolic 10mg daily. GENERAL: Well-appearing, well-nourished and in no acute distress. NECK: Supple without JVD or thyromegaly. LUNGS: Breath sounds clear to auscultation bilaterally. Respiration equal and unlabored. No wheezes, rales or rhonchi. HEART: Regular rate and rhythm without murmurs, rubs or gallops. S1 and S2 heard. EXTREMITIES: Normal range of motion, no edema. No clubbing or cyanosis. Peripheral pulses intact. ASSESSMENT Chest pain, atypical, acute coronary event has been ruled out, troponins were negative 3 with no acute changes on EKG Hypertension Hyperlipidemia History of mitral valve prolapse Hypothyroidism History of depression and anxiety PLAN From cardiology's perspective and acute coronary event has been ruled out. We will obtain a 2-D echo with Doppler study to assess cardiac structure and function. Patient without any further episodes of chest pain. If echocardiogram with no acute findings ok to discharge from cardiology perspective and follow up as an outpatient. Nurse Practitioner note has been reviewed, I agree with a documented findings and plan of care. Patient was seen and examined. Objective - Vital Signs Vital signs: Vital Signs Temp 97.6 F 09/27/21 07:00 Pulse 51 L 09/27/21 07:00 Resp 18 09/27/21 07:00 BP 148/78 09/27/21 07:00 Pulse Ox 94 L 09/27/21 07:00 Intake & Output 09/26/21 09/27/21 09/27/21 18:59 06:59 18:59 Intake Total 118 1080 240 Balance 118 1080 240 Intake: Oral 118 1080 240 Other: # Voids 3 2 - Labs CBC & Chem 7: 09/25/21 11:57 09/25/21 11:57
[2021-09-27 14:41] VITALS: BP 137/90; PULSE 64; TEMP 97.5
--- NOTE | 2021-09-27 16:38 | ECHOF ---
Referral Reason:chest pain MEASUREMENTS -------- HEIGHT: 170.2 cm WEIGHT: 102.1 kg BP: IVSd: 1.1 cm (0.6 - 1.1) LVIDd: 5.4 cm (3.9 - 5.3) LVPWd: 1.3 cm (0.6 - 1.1) EDV(Teich): 144 ml IVSs: 1.6 cm LVIDs: 2.5 cm LVPWs: 1.8 cm %IVS Thck: 45 % ESV(Teich): 23 ml EF(Teich): 84 % %FS: 54 % SV(Teich): 121 ml RVIDd: 2.3 cm (< 3.3) Ao Diam: 3.6 cm (2.0 - 3.7) LA Diam: 2.8 cm (2.7 - 3.8) AV Cusp: 2.3 cm (1.5 - 2.6) EPSS: 0.6 cm MV E Tyler: 0.57 m/s MV DecT: 352 ms MV Dec Cache: 1.6 m/s MV A Tyler: 0.77 m/s MV E/A Ratio: 0.74 MV PHT: 102 ms MR Vmax: 0.97 m/s MR maxP.79 mmHg AV Vmax: 0.86 m/s AV maxP.97 mmHg TR Vmax: 1.47 m/s TR maxP.69 mmHg RAP: 5.00 mmHg RVSP: 13.69 mmHg MV EF SLOPE: 47.02 mm/s (70 - 150) MV EXCURSION: 21.17 mm (> 18.000) FINDINGS -------- This was a technically difficult study with suboptimal views. This was a technically difficult stud y with suboptimal apical views. The left ventricular size is normal. Left ventricular wall thickness is normal. Overall left vent ricular systolic function is normal with, an EF between 55 - 60 %. The right ventricle is normal in size. The left atrial size is normal. The right atrial size is normal. The aortic valve is trileaflet and appears structurally normal. The mitral valve is normal. There is trace mitral regurgitation. The tricuspid valve appears structurally normal. Trace tricuspid regurgitation present. Right janet tricular systolic pressure is normal at < 35 mmHg. There is no pulmonic regurgitation present. The aortic root size is normal. IVC Not well visulized. There is no pericardial effusion. CONCLUSIONS -------- 1. The left ventricular size is normal. 2. Left ventricular wall thickness is normal. 3. Overall left ventricular systolic function is normal with, an EF between 55 - 60 %. 4. There is trace mitral regurgitation. 5. Trace tricuspid regurgitation present. FUR FEEDER: Henny Monroy RDCS
--- NOTE | 2021-09-27 16:45 | P.DS ---
Providers Date of admission: 09/25/21 14:44 Expected date of discharge: 09/27/21 Attending physician: Karishma Conley MD Consults: 09/25/21 14:54 Consult Physician Routine Consulting Provider: Antonio Medrano Consult Reason/Comments: chest pain Do you want consulting provider notified?: Yes Primary care physician: Carlos Yeung [employer] Course: Discharge Diagnosis: Atypical chest pain likely due to anxiety versus acid reflux Fatigue Anxiety and depression Hyperlipidemia Hypothyroidism Hospital Course: Patient is a 71-year-old female who presents to the ED with chest pain and fatigue. Patient was given Pepcid in the ED which resolved her chest pain. Patient has been seeing her PCP outpatient who has been managing her anxiety and depression. Patient believes that her chest pain is due to anxiety. Patient is referred to admission to rule out cardiac etiology of her chest pain. Her troponins were negative 3. Echocardiogram was unremarkable. Patient was deemed stable for discharge. She was instructed to follow-up with cardiology outpatient. She is also instructed to follow with her PCP to manage anxiety and acid reflux. 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 Patient Condition at Discharge: Good Plan - Discharge Summary Discharge Rx Participant: No New Discharge Prescriptions: No Action Ezetimibe [Zetia] 10 mg PO DAILY Nebivolol HCl [Bystolic] 10 mg PO DAILY Super B Complex 1 tab PO DAILY Pramipexole [Mirapex] 1 mg PO HS Levothyroxine Sodium 112 mcg PO DAILY Aspirin EC [Ecotrin Low Dose] 81 mg PO DAILY Cholecalciferol [Vitamin D3 (125 Mcg = 5000 Iu)] 125 mcg PO DAILY Mirtazapine [Remeron] 30 mg PO HS Citalopram Hydrobromide [CeleXA] 20 mg PO DAILY Discharge Medication List Ezetimibe [Zetia] 10 mg PO DAILY 01/12/19 [History] Nebivolol HCl [Bystolic] 10 mg PO DAILY 01/12/19 [History] Aspirin EC [Ecotrin Low Dose] 81 mg PO DAILY 09/25/21 [History] Cholecalciferol [Vitamin D3 (125 Mcg = 5000 Iu)] 125 mcg PO DAILY 09/25/21 [History] Citalopram Hydrobromide [CeleXA] 20 mg PO DAILY 09/25/21 [History] Levothyroxine Sodium 112 mcg PO DAILY 09/25/21 [History] Mirtazapine [Remeron] 30 mg PO HS 09/25/21 [History] Pramipexole [Mirapex] 1 mg PO HS 09/25/21 [History] Super B Complex 1 tab PO DAILY 09/25/21 [History] Follow up Appointment(s)/Referral(s): Carlos Cantu MD [Primary Care Provider] - 1-2 days Antonio Medrano MD [STAFF PHYSICIAN] - 2 Weeks
== END 2021-09-27 17:53 | disposition home or self-care (01) ==
LOC: EC 11:02 → 6NMEDSUR 14:44
PROVIDERS: ADMIT Internal Medicine; ATTEND Internal Medicine
DX: R07.89 Other chest pain (principal); I10 Essential (primary) hypertension; F41.9 Anxiety disorder, unspecified; R06.02 Shortness of breath; R53.83 Other fatigue; K21.9 Gastro-esophageal reflux disease without esophagitis; I73.9 Peripheral vascular disease, unspecified; I34.1 Nonrheumatic mitral (valve) prolapse; F32.A Depression, unspecified; E78.5 Hyperlipidemia, unspecified; E89.0 Postprocedural hypothyroidism; Z79.82 Long term (current) use of aspirin; Z79.890 Hormone replacement therapy; Z79.899 Other long term (current) drug therapy; Z86.711 Personal history of pulmonary embolism; Z90.49 Acquired absence of other specified parts of digestive tract; Z90.710 Acquired absence of both cervix and uterus; Z96.659 Presence of unspecified artificial knee joint; Z82.49 Family history of ischemic heart disease and other diseases of the circulatory system
CPT/HCPCS: 96375; 96374; 99285; 36415; 93005; 93306; 80053; 84443; 83735; 84484; 85025; 85610; 85730; 81003; 87635; 71046; G0378 ×3; J2405

== ENCOUNTER → 2021-12-14 | Outpatient (CLI) | payer MEDICARE ==
--- NOTE | 2021-12-14 18:04 | US ---
EXAMINATION TYPE: US carotid duplex BILAT DATE OF EXAM: 12/14/2021 COMPARISON: NONE CLINICAL HISTORY: 71-year-old female R42 Dizziness. History of hypertension, hyperlipidemia. TECHNIQUE: Carotid duplex ultrasound examination. Indirect Doppler criteria was utilized. FINDINGS: EXAM MEASUREMENTS: RIGHT: Peak Systolic Velocity (PSV) cm/sec ----- Right CCA: 87.8 ----- Right ICA: 74.7 ----- Right ECA: 63.8 ICA/CCA ratio: 0.9 RIGHT: End Diastole cm/sec ----- Right CCA: 17.1 ----- Right ICA: 23.2 ----- Right ECA: 8.3 LEFT: Peak Systolic Velocity (PSV) cm/sec ----- Left CCA: 62.4 ----- Left ICA: 76.4 ----- Left ECA: 63.3 ICA/CCA ratio: 1.2 LEFT: End Diastole cm/sec ----- Left CCA: 15.4 ----- Left ICA: 27.6 ----- Left ECA: 0.0 VERTEBRALS (direction of flow): Right Vertebral: Antegrade Left Vertebral: Antegrade Rhythm: Arrhythmia Animal Damage Control Agent notes: No elevated velocities at this time. Intimal thickening seen bilaterally. Plaque seen within right and left prox ECA. Hyperechoic area with hyperechoic center seen within the right neck: 2.2 x 1.9 x 0.7 cm. Incidental finding: Heterogeneous, hypoechoic area with vascularity seen within the left thyroid lobe : 2.0 x 1.2 x 1.5 cm. IMPRESSION: 1. No hemodynamically significant internal carotid artery stenosis on either side. 2. A TR4 solid nodule measuring 2.0 cm within the left thyroid lobe. Dedicated thyroid ultrasound can further evaluate and assess the need for FNA. 3. There appears to be a mildly enlarged lymph node along the right side of the neck measuring 1.9 cm short axis. Correlate with physical exam findings. Either clinical surveillance or further contrast enhanced CT neck evaluation can be considered.
== END | disposition home or self-care (01) ==
LOC: RADUSWWP 13:34
PROVIDERS: ATTEND Family Medicine
DX: E04.1 Nontoxic single thyroid nodule (principal); R59.0 Localized enlarged lymph nodes
CPT/HCPCS: 93880

== ENCOUNTER → 2022-03-01 | Outpatient (CLI) | payer MEDICARE ==
[2022-03-01 15:59] LABS: Blood Urea Nitrogen 28.5 mg/dL (9.0-27.0)
[2022-03-01 16:00] LABS: African American GFR (CKD) 85.1 (60.0-200.0); Non-African American GFR(CKD) 73.4 (60.0-200.0)
== END | disposition home or self-care (01) ==
LOC: LABWHC1 10:46
PROVIDERS: ATTEND Otolaryngology
DX: R59.0 Localized enlarged lymph nodes (principal)
CPT/HCPCS: 36415; 82565; 84520

== ENCOUNTER 2022-03-09 12:53 | Day surgery (SDC) | payer MEDICARE ==
[2022-03-09] MEDS ORDERED: ALPRAZolam 0.25 MG TAB PO STA (13:22)
[2022-03-09 14:11] VITALS: RESP 18; TEMP 98.1
--- NOTE | 2022-03-09 14:51 | US ---
ULTRASOUND GUIDED FNA THYROID BIOPSY: CLINICAL HISTORY: Left thyroid nodule FINDINGS: The procedure was explained to the patient. The risks, complications, benefits and alternatives were discussed and any questions were answered. Informed consent was obtained. Patient was placed supin e on the ultrasound table and prepped and draped in the usual sterile fashion. Utilizing a 25 gauge needle, five passes were made into the requested left thyroid nodule. Patient was stable throughout the procedure. Pathology is pending. All elements of maximal barrier technique were utilized. IMPRESSION: 1. Successful ultrasound guided FNA thyroid biopsy. Ultrasound scanning of the right neck demonstrat ed no sizable lymph node for percutaneous biopsy. These findings are consistent with the recent repor justin CT scan of the neck.
[2022-03-09 15:01] VITALS: BP 129/74; PULSE 69
== END 2022-03-09 14:45 | disposition home or self-care (01) ==
LOC: RADPROMAIN 12:53 → EDSTATUS 13:00 → RADPROMAIN 14:45
PROVIDERS: ATTEND Otolaryngology
DX: E04.1 Nontoxic single thyroid nodule (principal)
CPT/HCPCS: 10005; 88173; 88305

== ENCOUNTER → 2022-09-06 | Outpatient (CLI) | payer MEDICARE ==
--- NOTE | 2022-09-06 14:45 | US ---
EXAMINATION TYPE: US thyroid st tissue head/neck DATE OF EXAM: 09/06/2022 COMPARISON: Prev CT 03/02/2022 and FNA 03/09/2022. CLINICAL HISTORY: E04.1 Thyroid nodule. F/U left nodule, right thyroid surgically absent GLAND SIZE: Right Lobe: Surgically absent cm Left Lobe: 4.0 x 1.5 x 2.1 cm Overall Parenchyma: heterogeneous Isthmus Thickness: 0.3 cm NODULES LEFT: # of nodules measured on left: 1 1. 2.2 X 1.6 x 1.7 cm, mid, solid or almost completely solid, isoechoic nodule, which is wider than tall, with smooth margins, without echogenic foci. Prior size: Prior FNA only, not measured ISTHMUS: # of nodules measured in the isthmus: 0 Bilateral neck scanned, no evidence of lymphadenopathy. Left thyroid nodule, previously biopsied. IMPRESSION: 1. Stable left thyroid lobe 2.2 cm nodule which was previously biopsy on 03/09/2022. Correlation with pathology results is recommended. 2. Right thyroid lobe is surgically absent.
== END | disposition home or self-care (01) ==
LOC: RADUSWWP 14:07
PROVIDERS: ATTEND Otolaryngology
DX: E04.1 Nontoxic single thyroid nodule (principal)
CPT/HCPCS: 76536

== ENCOUNTER → 2022-09-14 | Outpatient (CLI) | payer MEDICARE ==
--- NOTE | 2022-09-16 18:32 | MM ---
Reason for Exam: Screening (asymptomatic). Last mammogram was performed 1 year(s) and 2 month(s) ago. Patient History: Menarche at age 12. First Full-Term at age 25. Left ovary removed at age 39. Right ovary removed at age 39. Hysterectomy at age 39. Postmenopausal. Patient used Hormonal Contraceptives for 2 years. Risk Values: Brianna 5 year model risk: 2.0%. NCI Lifetime model risk: 4.8%. Prior Study Comparison: 06/16/2015 Screening Mammogram, Unknown. 03/18/2020 Bilateral Screening Mammogram, [facility]. 07/01/2021 Bilateral Screening Mammogram, [facility]. Tissue Density: There are scattered fibroglandular densities. Findings: Analyzed By CAD. There is no suspicious group of microcalcifications or new suspicious mass in either breast. Overall Assessment: Negative, BI-RAD 1 Management: Screening Mammogram of both breasts in 1 year. 1. Patient should continue monthly self breast exams. 2. A clinical breast exam by your physician is recommended on an annual basis. 3. This exam should not preclude additional follow-up of suspicious palpable abnormalities. Electronically signed and approved by: Pancho Hess M.D. Radiologist
== END | disposition home or self-care (01) ==
LOC: RADMAMWWP 14:58
PROVIDERS: ATTEND Family Medicine
DX: Z12.31 Encounter for screening mammogram for malignant neoplasm of breast (principal); Z78.0 Asymptomatic menopausal state
CPT/HCPCS: 77063; 77067

== ENCOUNTER → 2023-03-24 | Outpatient (CLI) | payer MEDICARE ==
--- NOTE | 2023-03-24 10:35 | CA ---
Transthoracic Echo Report Name: Maura Robledo Age: 72 Gender: F : 1950 Exam Date: 03/24/2023 08:35 Exam Location: [facility] Ht (in): 67 Wt (lb): 215 Ordering Physician: Carlos Cantu MD Attending/Referring Phys: Laurie Gray PAC Reflexologist Lashon Mendoza RDCS Procedure CPT: Indications: I51.7 Cardiomegaly Cardiac Hx: Technical Quality: Good Contrast 1: Total Dose (mL): Contrast 2: Total Dose (mL): MEASUREMENTS (Male / Female) Normal Values 2D ECHO LV Diastolic Diameter PLAX 4.5 cm 4.2 - 5.9 / 3.9 - 5.3 cm LV Systolic Diameter PLAX 3.0 cm IVS Diastolic Thickness 1.2 cm 0.6 - 1.0 / 0.6 - 0.9 cm LVPW Diastolic Thickness 1.1 cm 0.6 - 1.0 / 0.6 - 0.9 cm LV Relative Wall Thickness 0.5 RV Internal Dim ED PLAX 3.4 cm LA Systolic Diameter LX 3.6 cm 3.0 - 4.0 / 2.7 - 3.8 cm LV Diastolic Volume MOD 4C 85.6 cm??? LV Systolic Volume MOD 4C 43.4 cm??? LV Ejection Fraction MOD 4C 49.3 % LV Diastolic Length 4C 7.8 cm LV Systolic Length 4C 6.4 cm LV Diastolic Volume MOD 2C 98.0 cm??? LV Systolic Volume MOD 2C 51.7 cm??? LV Ejection Fraction MOD 2C 47.3 % LV Diastolic Length 2C 7.6 cm LV Systolic Length 2C 6.1 cm LA Volume 78.9 cm??? 18 - 58 / 22 - 52 cm??? M-MODE Aortic Root Diameter MM 3.3 cm MV E Point Septal Separation 0.8 cm AV Cusp Separation MM 2.6 cm DOPPLER AV Peak Velocity 104.5 cm/s AV Peak Gradient 4.4 mmHg MV Area PHT 2.3 cm??? Mitral E Point Velocity 69.1 cm/s Mitral A Point Velocity 48.1 cm/s Mitral E to A Ratio 1.4 MV Deceleration Time 335.3 ms MV E' Velocity 6.4 cm/s Mitral E to MV E' Ratio 10.9 TR Peak Velocity 252.9 cm/s TR Peak Gradient 25.6 mmHg Right Ventricular Systolic Press 29.8 mmHg FINDINGS Left Ventricle Left ventricular ejection fraction is estimated at 55-60 %. Left ventricular cavity size normal. Mildly increased septal wall thickness. Mildly increased posterior wall thickness. Right Ventricle Mild right ventricular dilatation. Right ventricular systolic pressure within normal limits. Right Atrium Normal right atrial size. Left Atrium Severely increased left atrial volume. Mildly increased left atrial area. Mitral Valve Structurally normal mitral valve. No evidence for mitral valve prolapse. No mitral stenosis. Trace mitral regurgitation. Aortic Valve Trileaflet aortic valve. No aortic valve stenosis or regurgitation. Tricuspid Valve Structurally normal tricuspid valve. Trace to mild tricuspid regurgitation. Pulmonic Valve Structurally normal pulmonic valve. No pulmonic regurgitation. Pericardium Normal pericardium. No pericardial effusion. Aorta Normal size aortic root and proximal ascending aorta. CONCLUSIONS Normal LV systolic function Left atrial enlargement Previewed by: Dr. Antonio Medrano MD (Electronically Signed) Final Date: 24 March 2023 10:34
== END | disposition home or self-care (01) ==
LOC: RADECHMAIN 08:02
PROVIDERS: ATTEND Family Medicine
DX: I51.7 Cardiomegaly (principal)
CPT/HCPCS: 93306

== ENCOUNTER → 2023-05-04 | Outpatient (CLI) | payer MEDICARE ==
[2023-05-05 02:16] LABS: HCT 44.6 % (37.2-46.3); HGB 13.8 d/dL (12.0-15.0); MCH 30.8 pg (27.0-32.0); MCHC 30.9 d/dL (32.0-37.0); MCV 99.6 FL (80.0-97.0); NRBC Per 100 WBC 0 X 10*3/uL (0.00-0.01); Platelet Count 327 X 10*3/uL (140-440); RBC 4.48 X 10*6/uL (4.10-5.20); RDW 14.5 % (11.5-14.5); WBC 7.06 X 10*3/uL (4.50-10.00)
[2023-05-05 03:30] LABS: Blood Urea Nitrogen 29.8 mg/dL (9.0-27.0); Carbon Dioxide 26.3 mmol/L (21.6-31.8); Chloride 99 mmol/L (96-109); Potassium 4.4 mmol/L (3.5-5.5); Sodium 138 mmol/L (135-145)
== END | disposition home or self-care (01) ==
LOC: LABPAT 13:25
PROVIDERS: ATTEND Internal Medicine Cardiovascular Disease
DX: Z01.812 Encounter for preprocedural laboratory examination (principal); R06.02 Shortness of breath
CPT/HCPCS: 80051; 82565; 84520; 85027

== ENCOUNTER → 2023-05-04 | Outpatient (CLI) | payer MEDICARE ==
--- NOTE | 2023-05-04 18:07 | US ---
EXAMINATION TYPE: US thyroid st tissue head/neck DATE OF EXAM: 05/04/2023 COMPARISON: 09/06/2022 CLINICAL INDICATION: Female, 72 years old with history of E04.1 NONTOXIC SINGLE THYROID NODULE; GLAND SIZE: Left Lobe: 4.9 x 2.0 x 1.7 cm Overall Parenchyma: heterogenous Isthmus Thickness: 0.2 cm NODULES RIGHT: surgically absent LEFT: # of nodules measured on left: 1 1. 1.9 X 1.5 x 1.4 cm, mid, solid or almost completely solid, isoechoic nodule, which is as wide as it is tall, with ill-defined margins, without echogenic foci. Prior size: 2.2 x 1.6 x 1.7 cm ISTHMUS: # of nodules measured in the isthmus: 0 Bilateral neck scanned, no evidence of lymphadenopathy. IMPRESSION: Solitary solid nodule within the left lobe is stable to slightly smaller at 1.9 cm versus 2.2 cm, pre viously. Patient status post right thyroidectomy.
== END | disposition home or self-care (01) ==
LOC: RADUSWWP 13:02
PROVIDERS: ATTEND Otolaryngology
DX: E04.1 Nontoxic single thyroid nodule (principal)
CPT/HCPCS: 76536

== ENCOUNTER 2023-05-24 08:29 | Day surgery (SDC) | payer MEDICARE, OTHER ==
[2023-04-27 16:05] VITALS: BMI 33.6
[~2023-05-24 08:29] MED LIST changes: +ALPRAZolam 0.25 MG TAB PO PRN; +ALPRAZolam 0.5 MG TAB PO PRN; +ASPIRIN 325 MG TAB PO ONE; +ATORVASTATIN 80 MG TAB PO ONE; -DOBUTamine DRIP for NUC MED 500 MG in DEXTROSE/WATER 1 250ML.BAG IV PRN; +HEPARIN SODIUM,PORCINE (1 ML) 2,500 UNIT in SODIUM CHLORIDE 0.9% 250 ML IRRIGATION PRN; +HEPARIN SODIUM,PORCINE 10,000 UNIT in SODIUM CHLORIDE 0.9% 1,000 ML IRRIGATION PRN; +NITROGLYCERIN SL TABS 0.4 MG TAB SUBLINGUAL PRN; +SODIUM CHLORIDE 0.9% 1,000 ML in EMPTY BAG 1 BAG IV SCH
[2023-05-24] MEDS ORDERED: SODIUM CHLORIDE 0.9% 1,000 ML IV ONE (08:43)
[2023-05-24 08:55] VITALS: RESP 16; TEMP 97.5
[2023-05-24 09:09] LABS: Glucose,Whole Blood 104 mg/dL (70-110)
[2023-05-24] MEDS ORDERED: ONDANSETRON 4 MG/2 ML VIAL IVP STA (09:37)
[2023-05-24] MEDS ORDERED: fentaNYL (PF) 50 MCG/ML 2 ML AMP IVP ONE (11:44)
[2023-05-24] MEDS ORDERED: MIDAZOLAM 2 MG/2 ML VIAL IVP ONE (11:44)
[2023-05-24] MEDS ORDERED: LIDOCAINE 1% INJ 10MG/ML (5 ML VIAL-PF) SQ ONE (11:48)
[2023-05-24] MEDS ORDERED: VERAPAMIL SYRINGE (5 MG/10 ML) INTRAARTER ONE (11:50)
[2023-05-24] MEDS ORDERED: HEPARIN SODIUM 1,000 UN/ML (10ML VL) IV ONE (11:52)
[2023-05-24] MEDS ORDERED: IOPAMIDOL-370 100ML BTL INJ ONE (11:58)
--- NOTE | 2023-05-24 13:37 | CC ---
CARDIAC CATHETERIZATION REPORT INDICATION: Unstable angina. PROCEDURE NOTE: After obtaining informed consent, left heart catheterization and coronary angiogram were performed via right radial artery using standard Soha catheters. The patient tolerated the procedure well without any obvious immediate complications. The patient received moderate conscious sedation. Total sedation time was 12 minutes. A TR band was used for hemostasis at the end of the procedure. Right radial artery access was obtained using the Seldinger technique. A 6-Somali sheath was placed. Catheters and wires were floated into the ascending aorta under fluoroscopic guidance. FINDINGS: 1. HEMODYNAMICS: Left ventricular end-diastolic pressure is 14 mmHg. There is no significant gradient across the aortic valve. 2. LEFT VENTRICULOGRAM: Left ventriculogram is not performed. 3. ANGIOGRAPHIC DATA: a.Right coronary artery: Right coronary artery is a large dominant vessel and is free of significant stenosis. b.Left main coronary artery is a normal-sized vessel and is free of stenosis. Divides into left anterior descending coronary artery and circumflex coronary artery. LAD and its branches and circumflex coronary artery and its branches are free of significant stenosis. CONCLUSION: 1. Normal coronary arteries. 2. Normal left ventricular end-diastolic pressure. PLAN: The patient's recurrent episodes of chest discomfort are noncardiac in origin. She has atrial fibrillation and is currently on Xarelto. She is going to resume that and continue rest of her medications. MMODL / IJN: [id number] /
[2023-05-24 14:14] VITALS: BP 115/67; PULSE 81
== END 2023-05-24 16:00 | disposition home or self-care (01) ==
LOC: CATHCVL 08:29
PROVIDERS: ATTEND Internal Medicine Cardiovascular Disease
DX: I20.0 Unstable angina (principal); I10 Essential (primary) hypertension; E78.5 Hyperlipidemia, unspecified; Z82.49 Family history of ischemic heart disease and other diseases of the circulatory system; Z79.01 Long term (current) use of anticoagulants; Z79.899 Other long term (current) drug therapy
CPT/HCPCS: 93458; C1769; C1894; J2250; J2405; J2001; J3010; J1644; Q9967

== ENCOUNTER → 2023-12-13 | Outpatient (CLI) | payer MEDICARE ==
[2023-12-13 16:25] LABS: BUN/Creat Ratio 30.78 Ratio (12.00-20.00); Blood Urea Nitrogen 27.7 mg/dL (9.0-27.0); Calcium 9.3 mg/dL (8.7-10.3); Chloride 106 mmol/L (96-109); Glucose 106 mg/dL (70-110); Potassium 3.7 mmol/L (3.5-5.5); Sodium 145 mmol/L (135-145)
== END | disposition home or self-care (01) ==
LOC: LABPAT 09:21
PROVIDERS: ATTEND Internal Medicine Cardiovascular Disease
DX: Z01.812 Encounter for preprocedural laboratory examination (principal); Z79.899 Other long term (current) drug therapy
CPT/HCPCS: 36415; 80048

== ENCOUNTER → 2024-09-06 | Outpatient (CLI) | payer MEDICARE ==
--- NOTE | 2024-09-06 11:35 | CT ---
EXAMINATION TYPE: CT chest wo con DATE OF EXAM: 09/06/2024 COMPARISON: None CLINICAL INDICATION: Female, 74 years old with history of R91.8 Other abnormal findings of lung field ; PHH, lung nodule and SOB. TECHNIQUE: CT scan of the thorax is performed without IV contrast. CT DLP: 514.[address] CTDI: mGy Automated exposure control for dose reduction was used. FINDINGS: There is a 9 mm partially groundglass fissural or juxtapleural nodule in the right middle lobe. There is mild interstitial scarring in the lingula. There is no suspicious lung mass or nodule. There is no airspace consolidation. There is no abnormal interstitial density. There is no pleural effusion or pneumothorax. There is mild to moderate cardiomegaly. There is no thoracic aortic aneurysm. The main pulmonary shahriar ry is mildly dilated at 3.2 cm. Limited scanning the upper abdomen reveals multiple hepatic cysts, cholecystectomy, renal cysts and b ilateral 7-8mm nonobstructing renal calcifications. No focal osseous lesions are seen. IMPRESSION: 1. Right juxta pleural 9 mm nodule. 2. No suspicious lung mass or nodule. 3. No acute cardiopulmonary disease. 4. Mild to moderate cardiomegaly and mild dilatation of the main pulmonary artery. 5. Multiple renal cysts, liver cysts and bilateral nonobstructing renal calcifications. [facility], Workstation: [email or web address] 09/06/2024 11:33 AM
== END | disposition home or self-care (01) ==
LOC: RADCTMAIN 10:55
PROVIDERS: ATTEND Family Medicine
DX: N28.1 Cyst of kidney, acquired (principal); I51.7 Cardiomegaly; R91.8 Other nonspecific abnormal finding of lung field; K76.89 Other specified diseases of liver; R91.1 Solitary pulmonary nodule
CPT/HCPCS: 71250

== ENCOUNTER → 2025-02-26 | Outpatient (CLI) | payer MEDICARE ==
--- NOTE | 2025-02-26 15:38 | CT ---
EXAMINATION TYPE: CT chest wo con DATE OF EXAM: 02/26/2025 COMPARISON: 09/06/2024 CLINICAL INDICATION: Female, 74 years old with history of R91.1 LUNG NODULE; PHH, lung nodule TECHNIQUE: CT scan of the thorax is performed without IV contrast. CT DLP: 583.[address] CTDI: mGy Automated exposure control for dose reduction was used. FINDINGS: There is a stable 7 mm juxtapleural nodule associated with the right minor fissure. There is no new o r suspicious lung mass or nodule. There is no airspace consolidation. There is no abnormal interstitial density. There is no pleural effusion or pneumothorax. There is 3.1 cm dilatation of the main pulmonary artery measures [id number] cardiomegaly. There is no mediastinal, hilar or axillary adenopathy. Limited scanning through the upper abdomen shows liver cysts and nonobstructive 9.5 mm right renal ca lcification and nonobstructive 8 mm left renal calcification. The osseous structures are intact. IMPRESSION: 1. Stable 7 mm juxtapleural nodule on the right. No new or suspicious lung mass or nodule. 2. No acute cardiopulmonary disease. 3. Stable mild dilatation of the main pulmonary artery. 4. [id number] cardiomegaly 5. Stable bilateral nonobstructive renal calcinosis. [facility], Workstation: [email or web address] 02/26/2025 3:35 PM
== END | disposition home or self-care (01) ==
LOC: RADCTMAIN 13:37
PROVIDERS: ATTEND Family Medicine
DX: R91.1 Solitary pulmonary nodule (principal); I51.7 Cardiomegaly; E83.59 Other disorders of calcium metabolism; I28.1 Aneurysm of pulmonary artery
CPT/HCPCS: 71250

== ENCOUNTER → 2025-05-15 | Outpatient (CLI) | payer MEDICARE ==
--- NOTE | 2025-05-15 22:21 | US ---
EXAMINATION TYPE: US kidneys/renal and bladder DATE OF EXAM: 05/15/2025 COMPARISON: 06/07/2019 CLINICAL INDICATION: Female, 74 years old with history of N20.0 CALCULUS OF KIDNEY; BL Flank pain wit h urinary burning. Hx HTN TECHNIQUE: Grayscale imaging of the bilateral kidneys and urinary bladder: FINDINGS: EXAM MEASUREMENTS: Right Kidney: 11.5 x 6.1 x 5.3 cm Left Kidney: 13.0 x 5.4 x 6.3 cm Post Void Residual Volume: NA mL Right Kidney: Multiple cystic areas, largest lower pole - 5.9 x 5.1 x 6.9 Left Kidney: Echogenic foci with posterior shadowing in lower pole - 1.6 x 0.7 x 0.8 WNL Bladder: WNL Bilateral Jets seen: Yes Normal Post Void Residual: NA Echogenic foci posterior shadowing without hydronephrosis present at the inferior pole left kidney. Bladder is sonolucent. The posterior wall is normal. IMPRESSION: Nonobstructing left renal calcification. Right renal cysts. [facility], , 05/15/2025 10:19 PM
== END | disposition home or self-care (01) ==
LOC: RADUSWWP 13:34
PROVIDERS: ATTEND Urology
DX: N20.0 Calculus of kidney (principal); I10 Essential (primary) hypertension; N28.1 Cyst of kidney, acquired; N28.89 Other specified disorders of kidney and ureter
CPT/HCPCS: 76770